=== PATIENT | female | born 1970 | race Caucasian/White ===

== ENCOUNTER 2020-01-18 15:19 | Emergency (ER) | payer BC ==
[~2020-01-18] VITALS: Ht 160 cm; Wt 61.2 kg
[~2020-01-18 15:19] MED LIST: DEPO SHOT; PHEN-452
[2020-01-18] MEDS ORDERED: ACETAMINOPHEN 500 MG TAB (TYLENOL) ONE (15:31)
[2020-01-18] MEDS ORDERED: LACTATED RINGERS 1,000 ML IV ONE (15:31)
[2020-01-18] MEDS ORDERED: KETOROLAC 30 MG/ML VIAL ONE (15:47)
[2020-01-18] MEDS ORDERED: ONDANSETRON 4 MG/2 ML (SDV) Z0FRAN ONE (15:48)
--- NOTE | 2020-01-18 15:48 | ED Cough/URI ---
General Chief Complaint: Abdominal/GI Problems Stated Complaint: HEADACHE, BODYACHES,FEVER,VOMITING Nursing Triage Note: PT AMB TO [facility] 10 WITH COMPLAINT OF FEVER, HEADACHE, CHILLS, AND VOMITING. STATES SYMPTOMS STARTED MONDAY NIGHT. Sepsis Screen: No Definite Risk Source: patient Exam Limitations: no limitations History of Present Illness Date Seen by Provider: Jan 18, 2020 Time Seen by Provider: 15:30 Initial Comments Here with report of fever, chills, body aches, headache, vomiting and overall not feeling well for the last 2 days. There was a person with COVID 19 in her office but she was not around the person. Unknown exposure. She did go to [place] about a week ago. Denies any significant contacts there. Denies diarrhea or dysuria but does have lower abdominal pain. Timing/Duration: getting worse, other (2 days) Severity/Quality: moderate, other (body aches) Prior Episodes/Possible Cause: no prior episodes Modifying Factors: Improves With Rest Associated Symptoms: fever/chills, headache, muscle aches, nasal congestion, shortness of breath Allergies and Home Medications Allergies Coded Allergies: No Known Drug Allergies (Verified Allergy, Unknown, 06/10/08) Patient Home Medication List Home Medication List Reviewed: Yes Review of Systems Review of Systems Constitutional: see HPI; No chills, No fever EENTM: no symptoms reported Respiratory: No short of breath, No wheezing Cardiovascular: No chest pain, No edema Gastrointestinal: abdominal pain, nausea, vomiting Genitourinary: No dysuria, No pain : No Musculoskeletal: muscle pain, muscle weakness Skin: no symptoms reported Psychiatric/Neurological: Headache, Weakness All Other Systems Reviewed Negative Unless Noted: Yes Past Cskhgem-Dsrkmt-Pcnrtv Hx Past Med/Social Hx: Reviewed Nursing Past Med/Soc Hx Patient Social History Alcohol Use: Occasionally Uses Recreational Drug Use: No Smoking Status: Never a Smoker Recent Foreign Travel: No Contact w/Someone Who Travel: No Recent Infectious Disease Expo: No Recent Hopitalizations: No Immunizations Up To Date Tetanus Booster (TDap): Unknown PED Vaccines UTD: Yes Past Medical History Surgeries: Yes Breast, Hysterectomy, Orthopedic Respiratory: No Cardiac: No Neurological: No Reproductive Disorders: Yes (MENORRHAGIA) [employer] History: Hysterectomy Sexually Transmitted Disease: No Genitourinary: No Gastrointestinal: No Musculoskeletal: No Endocrine: No HEENT: No Cancer: No Psychosocial: No Integumentary: No Blood Disorders: No Family Medical History Reviewed Nursing Family Hx Physical Exam Vital Signs - First Documented 01/18/20 15:29 Temp 38.1 Pulse 93 Resp 20 B/P (MAP) 144/88 (106) Pulse Ox 97 O2 Delivery Room Air Capillary Refill : Less Than 3 Seconds Height: 5'3.00" Weight: 160lbs. oz. [id number]; 23.00 BMI Method: General Appearance: WD/WN, no apparent distress HEENT: PERRL/EOMI, pharynx normal Neck: full range of motion, supple Respiratory: lungs clear, normal breath sounds Cardiovascular: no murmur, tachycardia Gastrointestinal: soft, tenderness (lower abdomen and suprapubic) Extremities: non-tender, normal inspection Neurologic/Psychiatric: alert, oriented x 3 Skin: normal color, warm/dry Progress/Results/Core Measures Suspected Sepsis Recent Fever Within 48 Hours: Yes Infection Criteria Present: None New/Unexplained Altered Menta: No Sepsis Screen: No Definite Risk SIRS Temperature: Pulse: 93 Respiratory Rate: 20 Laboratory Tests 01/18/20 15:45: White Blood Count 6.3 Blood Pressure 144 /88 Mean: 106 Laboratory Tests 01/18/20 15:45: Creatinine 0.84, Platelet Count 172, Total Bilirubin 1.1H Results/Orders Lab Results Laboratory Tests Test 01/18/20 15:45 01/18/20 16:55 Range/Units White Blood Count 6.3 4.3-11.0 10^3/uL Red Blood Count 4.51 3.80-5.11 10^6/uL Hemoglobin 14.2 11.5-16.0 g/dL Hematocrit 42 35-52 % Mean Corpuscular Volume 94 80-99 fL Mean Corpuscular Hemoglobin 32 25-34 pg Mean Corpuscular Hemoglobin Concent 34 32-36 g/dL Red Cell Distribution Width 12.1 10.0-14.5 % Platelet Count 172 130-400 10^3/uL Mean Platelet Volume 9.5 9.0-12.2 fL Immature Granulocyte % (Auto) 1 % Neutrophils (%) (Auto) 83 H 42-75 % Lymphocytes (%) (Auto) 8 L 12-44 % Monocytes (%) (Auto) 8 0-12 % Eosinophils (%) (Auto) 0 0-10 % Basophils (%) (Auto) 0 0-10 % Neutrophils # (Auto) 5.2 1.8-7.8 10^3/uL Lymphocytes # (Auto) 0.5 L 1.0-4.0 10^3/uL Monocytes # (Auto) 0.5 0.0-1.0 10^3/uL Eosinophils # (Auto) 0.0 0.0-0.3 10^3/uL Basophils # (Auto) 0.0 0.0-0.1 10^3/uL Immature Granulocyte # (Auto) 0.1 0.0-0.1 10^3/uL D-Dimer 1.26 H 0.00-0.49 UG/ML Sodium Level 141 135-145 MMOL/L Potassium Level 4.1 3.6-5.0 MMOL/L Chloride Level 104 98-107 MMOL/L Carbon Dioxide Level 23 21-32 MMOL/L Anion Gap 14 5-14 MMOL/L Blood Urea Nitrogen 18 7-18 MG/DL Creatinine 0.84 0.60-1.30 MG/DL Estimat Glomerular Filtration Rate > 60 BUN/Creatinine Ratio 21 Glucose Level 105 70-105 MG/DL Calcium Level 9.8 8.5-10.1 MG/DL Corrected Calcium 8.5-10.1 MG/DL Total Bilirubin 1.1 H 0.1-1.0 MG/DL Aspartate Amino Transf (AST/SGOT) 26 5-34 U/L Alanine Aminotransferase (ALT/SGPT) 19 0-55 U/L Alkaline Phosphatase 56 40-136 U/L C-Reactive Protein High Sensitivity 10.20 H 0.00-0.50 MG/DL Total Protein 7.5 6.4-8.2 GM/DL Albumin 4.7 H 3.2-4.5 GM/DL Coronavirus 2019 (STEVE) Negative Negative Urine Color ORANGE Urine Clarity CLEAR Urine pH 6.0 5-9 Urine Specific Cove >=1.030 1.016-1.022 Urine Protein 2+ H NEGATIVE Urine Glucose (UA) NEGATIVE NEGATIVE Urine Ketones 3+ H NEGATIVE Urine Nitrite POSITIVE H NEGATIVE Urine Bilirubin NEGATIVE NEGATIVE Urine Urobilinogen 1.0 < = 1.0 MG/DL Urine Leukocyte Esterase NEGATIVE NEGATIVE Urine RBC (Auto) 2+ H NEGATIVE Urine RBC 5-10 H /HPF Urine WBC 5-10 H /HPF Urine Squamous Epithelial Cells 5-10 /HPF Urine Crystals PRESENT H /LPF Urine Amorphous Sediment FEW CYRUS URATES H /LPF Urine Bacteria LARGE H /HPF Urine Casts NONE /LPF Urine Mucus LARGE H /LPF Urine Culture Indicated YES Micro Results Microbiology 01/18/20 Influenza Types A,B Antigen (SARAH) - Final, Complete My Orders Orders - RUBY ROBISON MD Lactated Ringers (Lr 1000 Ml Iv Solution (01/18/20 15:31) Acetaminophen Tablet (Tylenol Tablet) (01/18/20 15:31) Cbc With Automated Diff (01/18/20 15:40) Comprehensive Metabolic Panel (01/18/20 15:40) Fibrin Degradation Products (01/18/20 15:40) Hs C Reactive Protein (01/18/20 15:40) Influenza A And B Antigens (01/18/20 15:40) Covid 19 Inhouse Test (01/18/20 15:40) Ua Culture If Indicated (01/18/20 15:40) Ondansetron Injection (Zofran Injectio (01/18/20 16:00) Ketorolac Injection (Toradol Injection) (01/18/20 15:49) Ketorolac Injection (Toradol Injection) (01/18/20 15:47) Ondansetron Injection (Zofran Injectio (01/18/20 15:48) Acetaminophen Tablet (Tylenol Tablet) (01/18/20 16:00) Lactated Ringers (Lr 1000 Ml Iv Solution (01/18/20 16:00) Coronavirus Sars-Cov-2 So 2019 (01/18/20 16:16) Coronavirus Sars-Cov-2 So 2019 (01/18/20 16:39) Urine Culture (01/18/20 16:55) Ceftriaxone For Iv Use (Rocephin For I (01/18/20 17:46) Medications Given in ED Current Medications Medications Dose Ordered Sig/Adamaris Route Start Time Stop Time Status Last Admin Dose Admin Acetaminophen 1,000 mg ONCE ONCE PO 01/18/20 16:00 01/18/20 16:01 DC 01/18/20 15:35 1,000 MG Ondansetron HCl 4 mg ONCE ONCE IVP 01/18/20 16:00 01/18/20 16:01 DC 01/18/20 15:53 4 MG Vital Signs/I&O 01/18/20 15:29 Temp 38.1 Pulse 93 Resp 20 B/P (MAP) 144/88 (106) Pulse Ox 97 O2 Delivery Room Air Capillary Refill : Less Than 3 Seconds Blood Pressure Mean: 106 Progress Note : Progress Note Seen and evaluated. Symptoms concerning for COVID-19 but also has suprapubic pain. IV, labs, COVID-19 test and UA ordered. LR 1 L bolus. Tylenol 1 g by mouth for fever. Zofran 4 mg IV and Toradol 30 mg IV also ordered.Monitor patient. 1635: Rapid COVID test is negative although I'm highly suspicious that the test was false-negative given her current symptoms. UA pending. We will send for confirmatory tests for verification. Monitor patient. 1750: UTI noted. Nitrite positive. Rocephin 1 g IV ordered due to history of vomiting. We will continue treatment outpatient with cephalexin twice a day for 7 days. This was discussed with the patient who agreed. She was appreciative of care and overall feeling better currently. Discharged home with return precautions. Patient verbalize understanding instructions and agreement with plan. Departure Impression Primary Impression: Urinary tract infection Qualified Codes: N30.00 - Acute cystitis without hematuria Additional Impression: Encounter for laboratory testing for COVID-19 virus Disposition: HOME, SELF-CARE Condition: Improved Departure-Patient Inst. Decision time for Depature: 17:57 Patient Instructions: Urinary Tract Infection, Adult (DC), Coronavirus Disease 2019 (COVID-19) Overview Add. Discharge Instructions: All discharge instructions reviewed with patient and/or family. Voiced unders tanding. Take antibiotics as directed. Drink plenty of fluids and get plenty of rest. You will need to remain on quarantine until test results are noted. If they are negative, you will need to be isolated for 3 days after symptoms resolve. If they are positive, the health department will call you and direct quarantine timeframe. You may take ibuprofen 600 mg every 8 hours as needed for fever or pain. You may take Tylenol/acetaminophen 1000 mg every 8 hours as needed for fever.. Return for worse pain, fever, vomiting, weakness, breathing problems or other concerns as needed. Scripts Cephalexin (Cephalexin) 500 Mg Tablet 500 MG PO BID, #10 TAB 0 Refills Prov: RUBY ROBISON MD 01/18/20 RUBY ROBISON MD Jan 18, 2020 15:48
[2020-01-18] MEDS ORDERED: KETOROLAC 30 MG/ML VIAL IVP STA (15:49)
[2020-01-18 16:00] LABS: BASOPHILS % (AUTO) 0 % (0-10); EOSINOPHILS % (AUTO) 0 % (0-10); HEMATOCRIT 42 % (35-52); HEMOGLOBIN 14.2 g/dL (11.5-16.0); LYMPHOCYTES # (AUTO) 0.5 10^3/uL (1.0-4.0); LYMPHOCYTES % (AUTO) 8 % (12-44); MEAN CORPUSCULAR HEMOGLOBIN 32 pg (25-34); MEAN CORPUSCULAR HGB CONC 34 g/dL (32-36); MEAN CORPUSCULAR VOLUME 94 fL (80-99); MEAN PLATELET VOLUME 9.5 fL (9.0-12.2); MONOCYTES # (AUTO) 0.5 10^3/uL (0.0-1.0); MONOCYTES % (AUTO) 8 % (0-12); NEUTROPHILS # (AUTO) 5.2 10^3/uL (1.8-7.8); NEUTROPHILS % (AUTO) 83 % (42-75); PLATELET COUNT 172 10^3/uL (130-400); WHITE BLOOD COUNT 6.3 10^3/uL (4.3-11.0)
[2020-01-18] MEDS ORDERED: ACETAMINOPHEN 500 MG TAB (TYLENOL) PO ONE (16:00)
[2020-01-18] MEDS ORDERED: LACTATED RINGERS 1,000 ML IV SCH (16:00)
[2020-01-18] MEDS ORDERED: ONDANSETRON 4 MG/2 ML (SDV) Z0FRAN IVP ONE (16:00)
[2020-01-18 16:14] LABS: ALBUMIN 4.7 GM/DL (3.2-4.5); CHLORIDE 104 MMOL/L (98-107); POTASSIUM 4.1 MMOL/L (3.6-5.0); SODIUM 141 MMOL/L (135-145)
[2020-01-18 16:15] LABS: CALCIUM 9.8 MG/DL (8.5-10.1)
[2020-01-18 16:17] LABS: GLUCOSE 105 MG/DL (70-105); TOTAL PROTEIN 7.5 GM/DL (6.4-8.2)
[2020-01-18 16:18] LABS: BILIRUBIN,TOTAL 1.1 MG/DL (0.1-1.0); CARBON DIOXIDE 23 MMOL/L (21-32)
[2020-01-18 16:20] LABS: ALKALINE PHOSPHATASE 56 U/L (40-136); CREATININE SERUM 0.84 MG/DL (0.60-1.30); GFR ESTIMATED > 60
[2020-01-18 16:22] LABS: BUN/CREATININE RATIO 21
[2020-01-18 16:23] LABS: ALANINE AMINOTRANSFERASE 19 U/L (0-55)
[2020-01-18 17:15] LABS: CLARITY,URINE CLEAR; COLOR,URINE ORANGE; GLUCOSE, URINE (UA) NEGATIVE (NEGATIVE); KETONES,URINE 3+ (NEGATIVE); LEUKOCYTE ESTERASE ,URINE NEGATIVE (NEGATIVE); NITRITE,URINE POSITIVE (NEGATIVE); PROTEIN,URINE 2+ (NEGATIVE)
[2020-01-18 17:34] LABS: AMORPHOUS SEDIMENT,UR FEW AMOR URATES /LPF; BACTERIA,URINE LARGE /HPF; BILIRUBIN,URINE NEGATIVE (NEGATIVE)
[2020-01-18] MEDS ORDERED: cefTRIAXone FOR IV USE 1,000 MG in WATER (STERILE) FOR INJECTION 10 ML IV STA (17:46)
[2020-01-18] MEDS ORDERED: CEPH500T PO (17:58)
[2020-01-18] MEDS ORDERED: RT-ALBUTEROL SULF 2.5 MG/3 ML PRE-MIX VIAL ONE (18:06)
[2020-01-18 18:25] VITALS: BP 113/84
== END 2020-01-18 18:25 | disposition home or self-care (01) ==
LOC: EDUNIT# 15:19 → ER 15:20
DX: N39.0 Urinary tract infection, site not specified (principal); Z20.828 Contact with and (suspected) exposure to other viral communicable diseases
CPT/HCPCS: 80053; 81000; 85025; 85379; 86141; 87077; 87088; 87186; 87804; 99284; U0002; 36415; 87635

== ENCOUNTER → 2021-06-08 | Outpatient (CLI) | payer BC ==
[~2021-06-08] MED LIST changes: +CEPH500T PO
--- NOTE | 2021-06-08 14:55 | Diagnostic Imaging Report ---
Indication: Routine screening. Comparison is made with prior mammogram from 02/27/2014 and 06/25/2012. 2-D and 3-D bilateral screening mammography was performed with CAD. Bilateral subpectoral breast implants again noted. Implant contours appear to be stable. Both breasts remain heterogeneously dense, limiting the sensitivity of mammography. There is a biopsy marker clip in the outer right breast. Nodules in the outer right breast are no longer visualized. There are scattered benign calcifications in both breasts. No new mass or malignant appearing microcalcifications are seen. Axillae are unremarkable. IMPRESSION: BI-RADS Category 2 No mammographic features suspicious for malignancy are identified. ACR BI-RADS Category 2: Benign findings. Result letter will be mailed to the patient. Note: At least 10% of breast cancer is not imaged by mammography. Dictated by: Dictated on workstation # [id number]
== END ==
LOC: RAD 10:45
PROVIDERS: ATTEND Family Medicine
DX: Z12.31 Encounter for screening mammogram for malignant neoplasm of breast (principal)
CPT/HCPCS: 77063; 77067